=== PATIENT | female | born 1950 | race Caucasian/White ===

== ENCOUNTER 2017-01-03 08:34 | Day surgery (SDC) | payer OTHER, BC ==
[~2017-01-03] VITALS: Ht 172.7 cm; Wt 68.1 kg
[~2017-01-03 08:34] MED LIST: FISH OIL PO; LEXAPRO20 MG PO; LIPITOR20 MG PO; NEURONTIN100 MG PO; RELPAX40 MG PO; VITAMIN B PO; VITAMIN E PO; XANAX0.5 MG PO
[2017-01-03 09:36] VITALS: BP 170/71
[2017-01-03 12:43] VITALS: BP 143/65
[2017-01-03 13:45] VITALS: BP 160/70
[2017-01-03 14:12] VITALS: BP 160/68
== END 2017-01-03 14:22 | disposition home or self-care (01) ==
LOC: SDC 08:34
PROC: 0UB98ZX Excision of Uterus, Via Natural or Artificial Opening Endoscopic, Diagnostic (ICD-10-PCS; principal; 2017-01-03)
PROC: 0UDB8ZX Extraction of Endometrium, Via Natural or Artificial Opening Endoscopic, Diagnostic (ICD-10-PCS; 2017-01-03)
DX: N84.0 Polyp of corpus uteri (principal); N95.0 Postmenopausal bleeding; N85.8 Other specified noninflammatory disorders of uterus; F41.9 Anxiety disorder, unspecified; E78.5 Hyperlipidemia, unspecified; F33.1 Major depressive disorder, recurrent, moderate; Z80.1 Family history of malignant neoplasm of trachea, bronchus and lung; Z82.49 Family history of ischemic heart disease and other diseases of the circulatory system; Z82.61 Family history of arthritis
CPT/HCPCS: 88305; J0131; J0690; J1100; J1885; J2250; J2405; J2765; J3010